=== PATIENT | male | born 1960 | race Caucasian/White ===

== ENCOUNTER 2022-09-01 17:19 | Inpatient (IN) ==
--- NOTE | 2022-09-01 17:53 | Emergency Department Note ---
Impression & Plan Acidosis, lactic ADMIT ED Provider Note HPI: The patient is a 62-year-old gentleman who presents the emergency department with a chief complaint of altered mental status. Patient tells me that earlier today around 1:30 PM he had an episode where he felt somewhat dizzy, states that he was sitting on a tractor doing some work outside [place]. Patient states that he felt dizzy and somewhat nauseous at the time, he denies any headache, denies any chest pain or shortness of breath. Patient states he was able to call the [employer] yard and then his was able to come pick him up in the car. By the time he arrived back to the [facility] office, it was about 2 hours after the episode started. Patient states in total the episode lasted 10 minutes. Patient is able to give me a fairly lucid history however his at the bedside states the patient has been confused ever since this happened. She states that he did not know what day it was, he is unable to accurately state his age. Patient tells me on arrival that he believes he is 51 years old but he is actually 62 years old, additionally patient believes it is the year 2021 instead of 2022. He is otherwise alert and without any focal deficits on arrival. Patient is ROS: - Per HPI *Outpatient medications and allergy history reviewed. *Pertinent external medical records reviewed. PE: General: Alert HEENT: Normocephalic, trachea midline Eyes: Extraocular eye movement is intact, no scleral erythema Pulmonary: Clear to auscultation bilaterally, no wheezing Cardio: Regular rate and rhythm GI: Abdomen is soft to palpation : No suprapubic tenderness MSK: No evidence of trauma or malformation of the extremities, no edema Skin: No evidence of rash Neuro: Alert, no focal deficits, equal bilateral plant protection supervisor strength, symmetrical facial movements are appreciated, patient ambulates all extremities spontaneously without issue Psychiatric: Cooperative electrical engineer: (As interpreted by myself): - An order was placed for continuous cardiac monitoring - Patient was noted to be in sinus rhythm with a rate of 70 EKG: (As interpreted by myself): Rate: 74 Rhythm: Normal sinus rhythm Intervals: Within normal limits ST changes: No ST elevation Time: 1733 Interventions provided in ED: -IV fluid bolus Differential Diagnosis: Acute ischemic stroke, dehydration/heatstroke, sepsis, intracranial bleed to include subarachnoid hemorrhage, subdural hemorrhage, epidural hematoma, delirium, amongst other potential pathologies. Medical Decision Making: Patient presented to the emergency department after an episode of altered mentation, confusion, states he also had presyncope. Patient is a fair historian on arrival but does exhibit some confusion, does not know his own age, is not sure what the year is. Patient's at the bedside states these are acute changes for him. He presents around 4 hours after his symptoms allegedly occurred although timeline is not completely clear. Patient does not have any focal deficits on arrival Shortly after the patient arrived IV was established, lab work obtained, patient was placed on operations specialist. Lab work does not show any leukocytosis, hemoglobin is within normal limits, platelet count is within normal limits, venous blood gas shows a normal pH, CMP does not show any critical electrolyte abnormalities, procalcitonin is low, low suspicion for infectious etiology at this time. CT imaging of the head was obtained and does not show any evidence of an acute intracranial process. Chest x-ray does not show any evidence of pneumonia. Given the patient's confusion and presyncopal event today I feel that he would benefit from admission, likely also to obtain MRI imaging to rule out acute ischemic pathology potentially as a source of his symptoms earlier today. If his symptoms are ischemic in nature I would not consider him a candidate for aggressive therapy such as tPA given unclear timeline as he is unable to completely recollect the timeline of events and arrived around 4 hours after he believes they might of occurred. In addition his physical exam aside from some confusion is reassuring. I think some of his symptoms may be secondary to dehydration with his lactic acidosis having been out in the hot sun today. Following IV fluid resuscitation and on my reassessment the patient states he is feeling improved. His states that his mentation seems to be clearing. Case was discussed with the on-call hospitalist, Dr. Peterson who accepted the patient to the inpatient service for further management. Patient and his at the bedside are in agreement to the above plan Consultants: Dr. Peterson, hospitalist Disposition discussion held by myself with: Patient and at bedside Diagnosis: 1. Encephalopathy, acute, nonspecific 2. Presyncopal event 3. Lactic acidosis, acute Disposition: Admission Juwan Reagan DO Emergency Medicine Past Med/Surg History Medical History (Updated 09/01/22 @ 21:56 by Juwan Reagan DO) Agoraphobia with panic disorder Asthma CAD (coronary artery disease) Disease of pituitary gland remote h/o following with endo for this DM II (diabetes mellitus, type II), controlled HTN (hypertension) MDD (major depressive disorder) Obstructive sleep apnea PTSD (post-traumatic stress disorder) Surgical History (Updated 09/01/22 @ 20:36 by Moon Galvin PA-C) H/O shoulder surgery Family History (Updated 09/01/22 @ 20:36 by Moon Galvin PA-C) Other Cancer Diabetes Social History (Updated 09/01/22 @ 20:37 by Moon Galvin PA-C) Smoking Status: Former smoker Tobacco Type: Cigarettes Hx Alcohol Use: Yes Alcohol Intake Frequency: 2-4 x/Month Hx Substance Use: No Feels Safe at Home: Yes Allergies Allergies Allergy/AdvReac Type Severity Reaction Status Date / Time house dust Allergy Intermediate SNEEZING, Verified 09/01/22 18:29 CONGESTION, CAN TRIGGER ASTHMA mold Allergy Intermediate SNEEZING, Verified 09/01/22 18:29 CONGESTION, CAN TRIGGER ASTHMA pollen extracts Allergy Intermediate SNEEZING, Verified 09/01/22 18:29 CONGESTION, CAN TRIGGER ASTHMA amoxicillin [From Augmentin] AdvReac Intermediate Diarrhea Verified 09/01/22 18:29 clavulanic acid AdvReac Intermediate Diarrhea Verified 09/01/22 18:29 [From Augmentin] Home Meds Home Medications Medication Instructions Recorded Confirmed albuterol sulfate 2.5 mg/3 mL 2.5 mg inhalation Q4H PRN 09/01/22 09/01/22 (0.083 %) solution for nebulization Shortness Of Breath albuterol sulfate 90 mcg/actuation 2 puff inhalation .Q4-6H PRN 09/01/22 09/01/22 aerosol inhaler (ProAir HFA) Shortness Of Breath aspirin 81 mg tablet,delayed 81 mg PO DAILY 09/01/22 09/01/22 release azelastine 0.05 % eye drops 1 drp OPB Q12H 09/01/22 09/01/22 cholecalciferol (vitamin D3) 25 25 mcg PO DAILY 09/01/22 09/01/22 mcg (1,000 unit) capsule (Vitamin D3) dapagliflozin 10 mg tablet 10 mg PO DAILY 09/01/22 09/01/22 (Farxiga) dulaglutide 3 mg/0.5 mL 3 mg subcut WK 09/01/22 09/01/22 subcutaneous pen injector (Trulicity) duloxetine 60 mg capsule,delayed 60 mg PO DAILY 09/01/22 09/01/22 release fexofenadine 180 mg tablet 180 mg PO DAILY PRN Congestion 09/01/22 09/01/22 fluticasone 250 mcg-salmeterol 50 2 inh inhalation DAILY 09/01/22 09/01/22 mcg/dose blistr powdr for inhalation (Advair Diskus) gabapentin 400 mg capsule 400 mg PO TID 09/01/22 09/01/22 glipizide 5 mg tablet, extended 5 mg PO QAM 09/01/22 09/01/22 release 24 hr glucosamine sulf dipot 1 cap PO DAILY 09/01/22 09/01/22 chlr,msm,chond 550 mg-C 30 mg-donnell 1 mg capsule (Glucosamine Chondroitin) lansoprazole 30 mg capsule,delayed 30 mg PO BID 09/01/22 09/01/22 release lisinopril 20 1 tab PO DAILY 09/01/22 09/01/22 mg-hydrochlorothiazide 25 mg tablet metformin 500 mg tablet 1,000 mg PO BID 09/01/22 09/01/22 montelukast 10 mg tablet 10 mg PO DAILY 09/01/22 09/01/22 (Singulair) lduepvnubzwu-gcrvgrmw-coybqe tablet 1 tab PO DAILY 09/01/22 09/01/22 ropinirole 0.25 mg tablet 0.5 mg PO QPM 09/01/22 09/01/22 rosuvastatin 10 mg tablet 10 mg PO HS 09/01/22 09/01/22 sodium chloride 0.65 % nasal spray 1 spray intranasal DIRECTED PRN 09/01/22 09/01/22 aerosol (Saline Nasal) Nasal Congestion Results & Data (ED) Vital Signs Vital Signs - 24 hr 09/01/22 17:40 09/01/22 17:47 09/01/22 17:47 Temperature 37.7 C H Temperature Source Oral Pulse Rate - Lying Pulse Rate - Sitting Pulse Rate - Standing Pulse Rate 72 73 Pulse Rate [Finger] 73 Respiratory Rate 20 Respiratory Effort / Characteristics Non-Labored Respiratory Depth Normal Blood Pressure - Lying Blood Pressure - Sitting Blood Pressure- Standing Blood Pressure 144/87 H Blood Pressure [Right Arm] Blood Pressure Mean 106 Blood Pressure Mean [Right Arm] Pulse Oximetry 99 Oxygen Delivery Method Room Air Sepsis Recent Fever Within 48 Hours No Sepsis New/Unexplained Change in Mental Status Yes Sepsis Action Taken by Nursing No Action Required 09/01/22 17:57 09/01/22 19:39 09/01/22 20:36 Temperature Temperature Source Pulse Rate - Lying Pulse Rate - Sitting Pulse Rate - Standing Pulse Rate Pulse Rate [Finger] 70 77 Respiratory Rate 18 16 Respiratory Effort / Characteristics Non-Labored Spontaneous Respiratory Depth Normal Blood Pressure - Lying Blood Pressure - Sitting Blood Pressure- Standing Blood Pressure Blood Pressure [Right Arm] 113/70 107/65 Blood Pressure Mean Blood Pressure Mean [Right Arm] 84 79 Pulse Oximetry 99 99 94 Oxygen Delivery Method Room Air Room Air Sepsis Recent Fever Within 48 Hours Sepsis New/Unexplained Change in Mental Status Sepsis Action Taken by Nursing 09/01/22 21:05 09/01/22 21:34 09/01/22 21:37 Temperature Temperature Source Pulse Rate - Lying 69 Pulse Rate - Sitting 66 Pulse Rate - Standing 78 Pulse Rate 69 Pulse Rate [Finger] 80 Respiratory Rate Respiratory Effort / Characteristics Respiratory Depth Blood Pressure - Lying 110/73 Blood Pressure - Sitting 112/65 Blood Pressure- Standing 126/75 Blood Pressure Blood Pressure [Right Arm] Blood Pressure Mean Blood Pressure Mean [Right Arm] Pulse Oximetry 98 Oxygen Delivery Method Room Air Sepsis Recent Fever Within 48 Hours Sepsis New/Unexplained Change in Mental Status Sepsis Action Taken by Nursing Laboratory Data 09/01/22 18:15 09/01/22 18:15 Lab Results 09/01/22 09/01/22 09/01/22 Range/Units 17:32 18:15 18:15 WBC 9.28 (4.8-10.8) K/ul RBC 4.04 L (4.70-6.10) M/uL Hgb 14.1 (14.0-18.0) g/dl Hct 40.8 L (42.0-52.0) % MCV 101.0 H (80.0-100.0) fL MCH 34.9 H (25.0-34.0) pg MCHC 34.6 (32.0-36.0) g/dL RDW Std Deviation 46.5 H (36.4-46.3) fL RDW Coeff of Tyler 12.5 (11.5-14.5) % Plt Count 221 (130-400) K/uL MPV 11.1 (9.4-12.4) fL Immature Gran % (Auto) 0.2 % Neut % (Auto) 63.3 % Lymph % (Auto) 26.1 % Butts % (Auto) 8.9 % Eos % (Auto) 1.2 % Baso % (Auto) 0.3 % Neut # (Auto) 5.87 (1.40-6.50) K/uL Lymph # (Auto) 2.42 (1.2-3.4) K/uL Butts # (Auto) 0.83 H (0.11-0.59) K/uL Eos # (Auto) 0.11 (0-0.50) K/uL Baso # (Auto) 0.03 (0-0.2) K/uL Immature Gran # (Auto) 0.02 (0.01-0.20) K/uL PT 11.4 (9.0-12.0) Seconds INR 1.1 (0.9-1.1) VBG pH (7.36-7.41) VBG pCO2 (38-50) mmHg VBG pO2 mmHg VBG HCO3 mmol/L VBG O2 Saturation % VBG Base Excess mEq/L Sodium (136-145) mmol/L Potassium (3.5-5.1) mmol/L Chloride (98-107) mmol/L Carbon Dioxide (21-32) mmol/L Anion Gap (3-11) BUN (6-23) mg/dl Creatinine (0.6-1.4) mg/dl Est Cr Clr Drug Dosing ml/min Est GFR ( Amer) ml/min Est GFR (Non-Af Amer) ml/min BUN/Creatinine Ratio (10-20) Glucose (70-99(Fasting)) mg/dl POC Glucose 109 H (70-99) mg/dl Lactate (0.4-2.0) mmol/L Calcium (8.6-10.3) mg/dl Magnesium (1.7-2.4) mg/dl Total Bilirubin (0.2-1.0) mg/dl Direct Bilirubin (0-0.2) mg/dl AST (13-39) U/L ALT (7-52) U/L Alkaline Phosphatase (34-104) U/L Ammonia (18-72) umol/L Total Creatine Kinase (30-223) U/L Troponin I High Sens (0-20) pg/ml Total Protein (6.0-8.3) gm/dl Albumin (3.4-5.0) gm/dl Procalcitonin (0-0.5) ng/ml Urine Color Urine Appearance (Clear) Urine pH (4.5-7.5) Ur Specific Wittman (1.000-1.030) Urine Protein (Negative) Urine Glucose (UA) (Negative) Urine Ketones (Negative) Urine Blood (Negative) Urine Nitrite (Negative) Urine Bilirubin (Negative) Urine Urobilinogen (Negative) Ur Leukocyte Esterase (Negative) Lyme Disease IgG Ab (Negative) Lyme Disease IgM Ab (Negative) SARS-CoV-2 (PCR) (Negative) Influenza Type A (PCR) (Neg) Influenza Type B (PCR) (Neg) RSV (RT-PCR) (Neg) 09/01/22 09/01/22 09/01/22 Range/Units 18:15 18:15 18:15 WBC (4.8-10.8) K/ul RBC (4.70-6.10) M/uL Hgb (14.0-18.0) g/dl Hct (42.0-52.0) % MCV (80.0-100.0) fL MCH (25.0-34.0) pg MCHC (32.0-36.0) g/dL RDW Std Deviation (36.4-46.3) fL RDW Coeff of Tyler (11.5-14.5) % Plt Count (130-400) K/uL MPV (9.4-12.4) fL Immature Gran % (Auto) % Neut % (Auto) % Lymph % (Auto) % Butts % (Auto) % Eos % (Auto) % Baso % (Auto) % Neut # (Auto) (1.40-6.50) K/uL Lymph # (Auto) (1.2-3.4) K/uL Butts # (Auto) (0.11-0.59) K/uL Eos # (Auto) (0-0.50) K/uL Baso # (Auto) (0-0.2) K/uL Immature Gran # (Auto) (0.01-0.20) K/uL PT (9.0-12.0) Seconds INR (0.9-1.1) VBG pH (7.36-7.41) VBG pCO2 (38-50) mmHg VBG pO2 mmHg VBG HCO3 mmol/L VBG O2 Saturation % VBG Base Excess mEq/L Sodium 138 (136-145) mmol/L Potassium 4.0 (3.5-5.1) mmol/L Chloride 104 (98-107) mmol/L Carbon Dioxide 23 (21-32) mmol/L Anion Gap 11 (3-11) BUN 28 H (6-23) mg/dl Creatinine 1.25 (0.6-1.4) mg/dl Est Cr Clr Drug Dosing 69.3 ml/min Est GFR ( Amer) 70.6 ml/min Est GFR (Non-Af Amer) 60.9 ml/min BUN/Creatinine Ratio 22.4 H (10-20) Glucose 91 (70-99(Fasting)) mg/dl POC Glucose (70-99) mg/dl Lactate 3.7 H* (0.4-2.0) mmol/L Calcium 9.0 (8.6-10.3) mg/dl Magnesium 1.2 L (1.7-2.4) mg/dl Total Bilirubin 1.3 H (0.2-1.0) mg/dl Direct Bilirubin 0.2 (0-0.2) mg/dl AST 54 H (13-39) U/L ALT 65 H (7-52) U/L Alkaline Phosphatase 59 (34-104) U/L Ammonia (18-72) umol/L Total Creatine Kinase (30-223) U/L Troponin I High Sens 10.8 (0-20) pg/ml Total Protein 6.9 (6.0-8.3) gm/dl Albumin 3.9 (3.4-5.0) gm/dl Procalcitonin < 0.05 (0-0.5) ng/ml Urine Color Urine Appearance (Clear) Urine pH (4.5-7.5) Ur Specific Wittman (1.000-1.030) Urine Protein (Negative) Urine Glucose (UA) (Negative) Urine Ketones (Negative) Urine Blood (Negative) Urine Nitrite (Negative) Urine Bilirubin (Negative) Urine Urobilinogen (Negative) Ur Leukocyte Esterase (Negative) Lyme Disease IgG Ab (Negative) Lyme Disease IgM Ab (Negative) SARS-CoV-2 (PCR) (Negative) Influenza Type A (PCR) (Neg) Influenza Type B (PCR) (Neg) RSV (RT-PCR) (Neg) 09/01/22 09/01/22 09/01/22 Range/Units 18:15 18:15 18:15 WBC (4.8-10.8) K/ul RBC (4.70-6.10) M/uL Hgb (14.0-18.0) g/dl Hct (42.0-52.0) % MCV (80.0-100.0) fL MCH (25.0-34.0) pg MCHC (32.0-36.0) g/dL RDW Std Deviation (36.4-46.3) fL RDW Coeff of Tyler (11.5-14.5) % Plt Count (130-400) K/uL MPV (9.4-12.4) fL Immature Gran % (Auto) % Neut % (Auto) % Lymph % (Auto) % Butts % (Auto) % Eos % (Auto) % Baso % (Auto) % Neut # (Auto) (1.40-6.50) K/uL Lymph # (Auto) (1.2-3.4) K/uL Butts # (Auto) (0.11-0.59) K/uL Eos # (Auto) (0-0.50) K/uL Baso # (Auto) (0-0.2) K/uL Immature Gran # (Auto) (0.01-0.20) K/uL PT (9.0-12.0) Seconds INR (0.9-1.1) VBG pH (7.36-7.41) VBG pCO2 (38-50) mmHg VBG pO2 mmHg VBG HCO3 mmol/L VBG O2 Saturation % VBG Base Excess mEq/L Sodium (136-145) mmol/L Potassium (3.5-5.1) mmol/L Chloride (98-107) mmol/L Carbon Dioxide (21-32) mmol/L Anion Gap (3-11) BUN (6-23) mg/dl Creatinine (0.6-1.4) mg/dl Est Cr Clr Drug Dosing ml/min Est GFR ( Amer) ml/min Est GFR (Non-Af Amer) ml/min BUN/Creatinine Ratio (10-20) Glucose (70-99(Fasting)) mg/dl POC Glucose (70-99) mg/dl Lactate (0.4-2.0) mmol/L Calcium (8.6-10.3) mg/dl Magnesium (1.7-2.4) mg/dl Total Bilirubin (0.2-1.0) mg/dl Direct Bilirubin (0-0.2) mg/dl AST (13-39) U/L ALT (7-52) U/L Alkaline Phosphatase (34-104) U/L Ammonia 45.0 (18-72) umol/L Total Creatine Kinase (30-223) U/L Troponin I High Sens (0-20) pg/ml Total Protein (6.0-8.3) gm/dl Albumin (3.4-5.0) gm/dl Procalcitonin (0-0.5) ng/ml Urine Color Yellow Urine Appearance Clear (Clear) Urine pH 8.0 H (4.5-7.5) Ur Specific Wittman 1.016 (1.000-1.030) Urine Protein Negative (Negative) Urine Glucose (UA) 3+ H (Negative) Urine Ketones 1+ H (Negative) Urine Blood Negative (Negative) Urine Nitrite Negative (Negative) Urine Bilirubin Negative (Negative) Urine Urobilinogen Negative (Negative) Ur Leukocyte Esterase Negative (Negative) Lyme Disease IgG Ab Negative (Negative) Lyme Disease IgM Ab Negative (Negative) SARS-CoV-2 (PCR) (Negative) Influenza Type A (PCR) (Neg) Influenza Type B (PCR) (Neg) RSV (RT-PCR) (Neg) 09/01/22 09/01/22 09/01/22 Range/Units 18:36 18:37 19:55 WBC (4.8-10.8) K/ul RBC (4.70-6.10) M/uL Hgb (14.0-18.0) g/dl Hct (42.0-52.0) % MCV (80.0-100.0) fL MCH (25.0-34.0) pg MCHC (32.0-36.0) g/dL RDW Std Deviation (36.4-46.3) fL RDW Coeff of Tyler (11.5-14.5) % Plt Count (130-400) K/uL MPV (9.4-12.4) fL Immature Gran % (Auto) % Neut % (Auto) % Lymph % (Auto) % Butts % (Auto) % Eos % (Auto) % Baso % (Auto) % Neut # (Auto) (1.40-6.50) K/uL Lymph # (Auto) (1.2-3.4) K/uL Butts # (Auto) (0.11-0.59) K/uL Eos # (Auto) (0-0.50) K/uL Baso # (Auto) (0-0.2) K/uL Immature Gran # (Auto) (0.01-0.20) K/uL PT (9.0-12.0) Seconds INR (0.9-1.1) VBG pH 7.40 (7.36-7.41) VBG pCO2 37 L (38-50) mmHg VBG pO2 52 mmHg VBG HCO3 23 mmol/L VBG O2 Saturation 84.3 % VBG Base Excess -1.5 mEq/L Sodium (136-145) mmol/L Potassium (3.5-5.1) mmol/L Chloride (98-107) mmol/L Carbon Dioxide (21-32) mmol/L Anion Gap (3-11) BUN (6-23) mg/dl Creatinine (0.6-1.4) mg/dl Est Cr Clr Drug Dosing ml/min Est GFR ( Amer) ml/min Est GFR (Non-Af Amer) ml/min BUN/Creatinine Ratio (10-20) Glucose (70-99(Fasting)) mg/dl POC Glucose (70-99) mg/dl Lactate 1.6 (0.4-2.0) mmol/L Calcium (8.6-10.3) mg/dl Magnesium (1.7-2.4) mg/dl Total Bilirubin (0.2-1.0) mg/dl Direct Bilirubin (0-0.2) mg/dl AST (13-39) U/L ALT (7-52) U/L Alkaline Phosphatase (34-104) U/L Ammonia (18-72) umol/L Total Creatine Kinase 742 H (30-223) U/L Troponin I High Sens (0-20) pg/ml Total Protein (6.0-8.3) gm/dl Albumin (3.4-5.0) gm/dl Procalcitonin (0-0.5) ng/ml Urine Color Urine Appearance (Clear) Urine pH (4.5-7.5) Ur Specific Wittman (1.000-1.030) Urine Protein (Negative) Urine Glucose (UA) (Negative) Urine Ketones (Negative) Urine Blood (Negative) Urine Nitrite (Negative) Urine Bilirubin (Negative) Urine Urobilinogen (Negative) Ur Leukocyte Esterase (Negative) Lyme Disease IgG Ab (Negative) Lyme Disease IgM Ab (Negative) SARS-CoV-2 (PCR) (Negative) Influenza Type A (PCR) (Neg) Influenza Type B (PCR) (Neg) RSV (RT-PCR) (Neg) 09/01/22 Range/Units 20:00 WBC (4.8-10.8) K/ul RBC (4.70-6.10) M/uL Hgb (14.0-18.0) g/dl Hct (42.0-52.0) % MCV (80.0-100.0) fL MCH (25.0-34.0) pg MCHC (32.0-36.0) g/dL RDW Std Deviation (36.4-46.3) fL RDW Coeff of Tyler (11.5-14.5) % Plt Count (130-400) K/uL MPV (9.4-12.4) fL Immature Gran % (Auto) % Neut % (Auto) % Lymph % (Auto) % Butts % (Auto) % Eos % (Auto) % Baso % (Auto) % Neut # (Auto) (1.40-6.50) K/uL Lymph # (Auto) (1.2-3.4) K/uL Butts # (Auto) (0.11-0.59) K/uL Eos # (Auto) (0-0.50) K/uL Baso # (Auto) (0-0.2) K/uL Immature Gran # (Auto) (0.01-0.20) K/uL PT (9.0-12.0) Seconds INR (0.9-1.1) VBG pH (7.36-7.41) VBG pCO2 (38-50) mmHg VBG pO2 mmHg VBG HCO3 mmol/L VBG O2 Saturation % VBG Base Excess mEq/L Sodium (136-145) mmol/L Potassium (3.5-5.1) mmol/L Chloride (98-107) mmol/L Carbon Dioxide (21-32) mmol/L Anion Gap (3-11) BUN (6-23) mg/dl Creatinine (0.6-1.4) mg/dl Est Cr Clr Drug Dosing ml/min Est GFR ( Amer) ml/min Est GFR (Non-Af Amer) ml/min BUN/Creatinine Ratio (10-20) Glucose (70-99(Fasting)) mg/dl POC Glucose (70-99) mg/dl Lactate (0.4-2.0) mmol/L Calcium (8.6-10.3) mg/dl Magnesium (1.7-2.4) mg/dl Total Bilirubin (0.2-1.0) mg/dl Direct Bilirubin (0-0.2) mg/dl AST (13-39) U/L ALT (7-52) U/L Alkaline Phosphatase (34-104) U/L Ammonia (18-72) umol/L Total Creatine Kinase (30-223) U/L Troponin I High Sens (0-20) pg/ml Total Protein (6.0-8.3) gm/dl Albumin (3.4-5.0) gm/dl Procalcitonin (0-0.5) ng/ml Urine Color Urine Appearance (Clear) Urine pH (4.5-7.5) Ur Specific Wittman (1.000-1.030) Urine Protein (Negative) Urine Glucose (UA) (Negative) Urine Ketones (Negative) Urine Blood (Negative) Urine Nitrite (Negative) Urine Bilirubin (Negative) Urine Urobilinogen (Negative) Ur Leukocyte Esterase (Negative) Lyme Disease IgG Ab (Negative) Lyme Disease IgM Ab (Negative) SARS-CoV-2 (PCR) NEGATIVE (Negative) Influenza Type A (PCR) Negative (Neg) Influenza Type B (PCR) Negative (Neg) RSV (RT-PCR) Negative (Neg) Administered Medications Magnesium Sulfate/Dextrose (Magnesium Sulfate / D5w) 1 gm in 100 mls @ 50 mls/hr IV Q2H JOHANA Stop: 09/02/22 02:44 Last Admin: 09/01/22 20:46 Dose: 50 mls/hr Documented By: Sodium Chloride (Nss 1000ml) 1,000 mls @ 100 mls/hr IV .Q10H ONE Stop: 09/02/22 06:37 Last Admin: 09/01/22 20:46 Dose: 100 mls/hr Documented By: Discontinued Medications Acetaminophen (Acetaminophen 500 Mg Tab) 500 mg PO NOW STA Stop: 09/01/22 20:27 Last Admin: 09/01/22 20:45 Dose: 500 mg Documented By: Sodium Chloride (Nss 1000ml) 1,000 mls @ 999 mls/hr IV .Q1H1M JOHANA Stop: 09/01/22 19:00 Last Infusion: 09/01/22 19:34 Dose: 0 mls/hr Documented By: Admin: 09/01/22 18:28 Dose: 999 mls/hr Documented By: Sodium Chloride (Nss 1000ml) 1,000 mls @ 999 mls/hr IV .Q1H1M ONE Stop: 09/01/22 20:52 Last Infusion: 09/01/22 20:46 Dose: 0 mls/hr Documented By: Admin: 09/01/22 19:55 Dose: 999 mls/hr Documented By: Imaging Data Radiologist's Impression: Chest X-Ray 09/01/22 17:49 XR chest 1V portable HISTORY: 62 years-old Male Sepsis acute sepsis COMPARISON: None TECHNIQUE: AP view of the chest FINDINGS: Cardiac silhouette is mildly enlarged. No pneumothorax, pleural effusion, airspace consolidation or pulmonary edema. Degenerative changes of the shoulders and spine. IMPRESSION: No acute process. ACT 112: Negative or not required by law. The above report was generated using voice recognition software. It may contain grammatical, syntax or spelling errors. Electronically signed by: Murphy Mcdermott M.D. 09/01/2022 6:[address] 09/01/22 17:50 CT head/brain wo con CLINICAL HISTORY: 62 years-old Male with AMS. Acutely altered mental status TECHNIQUE: Multiple axial CT images of the head were obtained without contrast. A dose lowering technique was utilized adhering to the principles of ALARA. CT DOSE: 537.48 mGy.cm COMPARISON: None. FINDINGS: No acute intracranial hemorrhage, midline shift, intracranial mass, hydrocephalus, territorial ischemia or abnormal extra-axial collection. Mild involutional changes. Cerebral vascular calcifications. The calvarium is intact. The paranasal sinuses, mastoid air cells, and middle ear cavities are clear. IMPRESSION: No acute intracranial abnormality. ACT 112: Negative or not required by law. The above report was generated using voice recognition software. It may contain grammatical, syntax or spelling errors. Electronically signed by: Murphy Mcdermott M.D. 09/01/2022 7:43 PM Discharge Plan Visit Data Chief Complaint: Altered Mental Status ED Provider: Juwan Reagan Discharge Problem: Acidosis, lactic Forms Stand Alone Forms: [facility] Prescriptions Prescriptions: No Action metformin 500 mg tablet 1,000 mg PO BID fluticasone propion-salmeterol [Advair Diskus] 250-50 mcg/dose Blister With Device 2 inh INHALATION DAILY azelastine 0.05 % drops 1 drp OPB Q12H albuterol sulfate 2.5 mg /3 mL (0.083 %) Solution For Nebulization 2.5 mg INHALATION Q4H PRN (Reason: Shortness Of Breath) gabapentin 400 mg capsule 400 mg PO TID glipizide 5 mg tablet extended release 24hr 5 mg PO QAM fexofenadine [Alessia] 180 mg Tablet 180 mg PO DAILY PRN (Reason: Congestion) aspirin 81 mg Tablet,Delayed Release (Dr/Ec) 81 mg PO DAILY ropinirole 0.25 mg tablet 0.5 mg PO QPM Rx Instructions: TAKE 1 HR PRIOR TO HS. lansoprazole 30 mg capsule,delayed release(DR/EC) 30 mg PO BID lisinopril-hydrochlorothiazide 20-25 mg tablet 1 tab PO DAILY montelukast [Singulair] 10 mg Tablet 10 mg PO DAILY albuterol sulfate [ProAir HFA] 90 mcg/actuation Hfa Aerosol Inhaler 2 puff INHALATION .Q4-6H PRN (Reason: Shortness Of Breath) cholecalciferol (vitamin D3) [Vitamin D3] 25 mcg (1,000 unit) Capsule 25 mcg PO DAILY Centrum Silver Tablet 1 tab PO DAILY Saline Nasal 0.65 % Aerosol,[place] 1 spray INTRANASAL DIRECTED PRN (Reason: Nasal Congestion) rosuvastatin 10 mg tablet 10 mg PO HS duloxetine 60 mg Capsule,Delayed Release(Dr/Ec) 60 mg PO DAILY Farxiga 10 mg tablet 10 mg PO DAILY Glucosamine Chondroitin 550-30-1 mg Capsule 1 cap PO DAILY Trulicity 3 mg/0.5 mL pen injector 3 mg SUBCUT WK Referrals Referrals: PCP,NO [Physician] -
[2022-09-01] MEDS ORDERED: SODIUM CHLORIDE 0.9% 1000ML 1,000 ML IV SCH (18:00)
--- NOTE | 2022-09-01 18:09 | XRay Report ---
XR chest 1V portable HISTORY: 62 years-old Male Sepsis acute sepsis COMPARISON: None TECHNIQUE: AP view of the chest FINDINGS: Cardiac silhouette is mildly enlarged. No pneumothorax, pleural effusion, airspace consolidation or p ulmonary edema. Degenerative changes of the shoulders and spine. IMPRESSION: No acute process. ACT 112: Negative or not required by law. The above report was generated using voice recognition software. It may contain grammatical, syntax o r spelling errors. Electronically signed by: Murphy Mcdermott M.D. 09/01/2022 6:08 PM
[2022-09-01 18:30] LABS: Appearance Urine Clear (Clear); Bilirubin Urine Negative (Negative); Blood Urine Negative (Negative); Color Urine Yellow; Glucose Urine UA 3+ (Negative); Ketones Urine 1+ (Negative); Leukocyte Esterase Urine Negative (Negative); Nitrite Urine Negative (Negative); Protein Urine Negative (Negative); Specific Gravity Urine 1.016 (1.000-1.030); Urobilinogen Urine Negative (Negative)
[2022-09-01 18:42] LABS: Base Excess VBG -1.5 mEq/L; HCO3 VBG 23 mmol/L; Oxygen Saturation VBG 84.3 %; PCO2 VBG 37 mmHg (38-50); PO2 VBG 52 mmHg
[2022-09-01 18:43] LABS: Basophils # (auto) 0.03 K/uL (0-0.2); Basophils % (auto) 0.3 %; Eosinophils # (auto) 0.11 K/uL (0-0.50); Eosinophils % (auto) 1.2 %; Hematocrit (blood only) 40.8 % (42.0-52.0); Hemoglobin 14.1 g/dl (14.0-18.0); Immature Granulocytes # (auto) 0.02 K/uL (0.01-0.20); Immature Granulocytes % (auto) 0.2 %; Lymphocytes # (auto) 2.42 K/uL (1.2-3.4); Lymphocytes % (auto) 26.1 %; Mean Corpuscular Hemoglobin 34.9 pg (25.0-34.0); Mean Corpuscular Hgb Conc 34.6 g/dL (32.0-36.0); Mean Platelet Volume 11.1 fL (9.4-12.4); Monocytes # (auto) 0.83 K/uL (0.11-0.59); Monocytes % (auto) 8.9 %; Neutrophils # (auto) 5.87 K/uL (1.40-6.50); Neutrophils % (auto) 63.3 %; Platelet Count 221 K/uL (130-400); RDW Coefficient of Variation 12.5 % (11.5-14.5); RDW Standard Deviation 46.5 fL (36.4-46.3); Red Blood Count 4.04 M/uL (4.70-6.10); White Blood Count 9.28 K/ul (4.8-10.8)
[2022-09-01 18:56] LABS: Albumin Level 3.9 gm/dl (3.4-5.0); BUN Creatinine Ratio 22.4 (10-20); Bilirubin Direct 0.2 mg/dl (0-0.2); Bilirubin,Total 1.3 mg/dl (0.2-1.0); Creatinine Clr Calc Pharmacy 69.3 ml/min; Est GFR (African American) 70.6 ml/min; Est GFR (Non-African American) 60.9 ml/min; Magnesium 1.2 mg/dl (1.7-2.4); Total Protein 6.9 gm/dl (6.0-8.3)
[2022-09-01 19:02] LABS: Troponin I High Sensitivity 10.8 pg/ml (0-20)
[2022-09-01 19:06] LABS: INR 1.1 (0.9-1.1); Prothrombin Time 11.4 Seconds (9.0-12.0)
--- NOTE | 2022-09-01 19:45 | CT Scan Report ---
CT head/brain wo con CLINICAL HISTORY: 62 years-old Male with AMS. Acutely altered mental status TECHNIQUE: Multiple axial CT images of the head were obtained without contrast. A dose lowering tech nique was utilized adhering to the principles of ALARA. CT DOSE: 537.48 mGy.cm COMPARISON: None. FINDINGS: No acute intracranial hemorrhage, midline shift, intracranial mass, hydrocephalus, territorial ischem ia or abnormal extra-axial collection. Mild involutional changes. Cerebral vascular calcifications. The calvarium is intact. The paranasal sinuses, mastoid air cells, and middle ear cavities are clear . IMPRESSION: No acute intracranial abnormality. ACT 112: Negative or not required by law. The above report was generated using voice recognition software. It may contain grammatical, syntax o r spelling errors. Electronically signed by: Murphy Mcdermott M.D. 09/01/2022 7:43 PM
[2022-09-01] MEDS ORDERED: SODIUM CHLORIDE 0.9% 1000ML 1,000 ML IV ONE ×2 (19:52→20:38)
[2022-09-01] MEDS ORDERED: ACETAMINOPHEN 500 MG TAB PO STA (20:26)
--- NOTE | 2022-09-01 20:30 | History & Physical Report ---
Date of Service September 01, 2022 Assessment & Plan (1) AMS (altered mental status): (2) Pre-syncope: (3) CAD (coronary artery disease): (4) HTN (hypertension): (5) Obstructive sleep apnea: (6) DM II (diabetes mellitus, type II), controlled: (7) MDD (major depressive disorder): (8) PTSD (post-traumatic stress disorder): (9) Lightheadedness: Plan This is a 62-year-old male with PMH of type 2 diabetes, asthma, CAD, hypertension, depression, PTSD PANFILO on CPAP and other medical problems listed below who presents with altered mental status. Please see Dr. Stephens's assessment and plan for further details. History of Present Illness Chief Complaint: AMS Primary Care Provider: Philippe Siddiqui This is a 62-year-old male with PMH of type 2 diabetes, asthma, CAD, hypertension, depression, PTSD PANFILO on CPAP and other medical problems listed below who presents with altered mental status. 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 Got on his tractor around 1330 and began to feel lightheaded and nauseous to the point of thinking that he may pass out. He then endorses developing shaking of his body with associated sweating, followed by a generalized weak feeling, like his legs were weight. Called the office for help and required physical assistance to get off of the tractor. States the episode lasted 10 minutes but when he was picked up by his , she felt that he remained confused up and through the time he was seen by the ED provider. Was not able to accurately name the day or correctly state his age. Did use bug repellant twice earlier today but denies known exposure to other chemicals or pesticides. No rash. Of note, patient states when he got up to use the bathroom at the campground last night, he walked into the restroom and then ended up urinating all over himself, which he did not have any recollection of until he "came to". This is unusual for him as he is normally continent of urine. Denies any falls or trauma. Denies recent alcohol use and when he does drink, it's an occasional beer. States he was remotely worked up for seizure-like activity but nothing specific was found (no records of a workup in [facility]). Has had previous issues feelings of lightheadedness and nausea that he has attributed to vertigo that have resolved on their own, although patient does note that these episodes have become more frequent and lasted for longer over the past few months. Does endorse intermittent palpitations but no chest pain. Has been having pain in bilateral calf muscles over the past few days that he attributes to more exertion in warmer weather. Per PCP note from May, patient endorsed episodes of sweating with associated dizziness then that did not feel similar to his previous vertigo and was treated with cefdinir for a possible sinus infection. Patient states episodes have worsened since then and the one earlier today was the worst yet. Denies history of [place] but did undergo stress echo in September 2020 that was essentially normal. Stress imaging showed a small apical wall segment being hypokinetic at peak exercise. All other segments were hyperkinetic with exercise. Currently patient is comfortable and A&O x4. Denies any fever, chills, lightheadedness, chest pain, shortness of breath, vomiting, abdominal pain, dysuria, diarrhea or constipation. Taking all medications as prescribed. Allergies Allergy/AdvReac Type Severity Reaction Status Date / Time house dust Allergy Intermediate SNEEZING, Verified 09/01/22 18:29 CONGESTION, CAN TRIGGER ASTHMA mold Allergy Intermediate SNEEZING, Verified 09/01/22 18:29 CONGESTION, CAN TRIGGER ASTHMA pollen extracts Allergy Intermediate SNEEZING, Verified 09/01/22 18:29 CONGESTION, CAN TRIGGER ASTHMA amoxicillin [From Augmentin] AdvReac Intermediate Diarrhea Verified 09/01/22 18:29 clavulanic acid AdvReac Intermediate Diarrhea Verified 09/01/22 18:29 [From Augmentin] Home Medications Medication Instructions Recorded Confirmed Type albuterol sulfate 2.5 mg/3 mL 2.5 mg inhalation Q4H PRN 09/01/22 09/01/22 History (0.083 %) solution for nebulization Shortness Of Breath albuterol sulfate 90 mcg/actuation 2 puff inhalation .Q4-6H PRN 09/01/22 09/01/22 History aerosol inhaler (ProAir HFA) Shortness Of Breath aspirin 81 mg tablet,delayed 81 mg PO DAILY 09/01/22 09/01/22 History release azelastine 0.05 % eye drops 1 drp OPB Q12H 09/01/22 09/01/22 History cholecalciferol (vitamin D3) 25 25 mcg PO DAILY 09/01/22 09/01/22 History mcg (1,000 unit) capsule (Vitamin D3) dapagliflozin 10 mg tablet 10 mg PO DAILY 09/01/22 09/01/22 History (Farxiga) dulaglutide 3 mg/0.5 mL 3 mg subcut WK 09/01/22 09/01/22 History subcutaneous pen injector (Trulicity) duloxetine 60 mg capsule,delayed 60 mg PO DAILY 09/01/22 09/01/22 History release fexofenadine 180 mg tablet 180 mg PO DAILY PRN Congestion 09/01/22 09/01/22 History fluticasone 250 mcg-salmeterol 50 2 inh inhalation DAILY 09/01/22 09/01/22 History mcg/dose blistr powdr for inhalation (Advair Diskus) gabapentin 400 mg capsule 400 mg PO TID 09/01/22 09/01/22 History glipizide 5 mg tablet, extended 5 mg PO QAM 09/01/22 09/01/22 History release 24 hr glucosamine sulf dipot 1 cap PO DAILY 09/01/22 09/01/22 History chlr,msm,chond 550 mg-C 30 mg-donnell 1 mg capsule (Glucosamine Chondroitin) lansoprazole 30 mg capsule,delayed 30 mg PO BID 09/01/22 09/01/22 History release lisinopril 20 1 tab PO DAILY 09/01/22 09/01/22 History mg-hydrochlorothiazide 25 mg tablet metformin 500 mg tablet 1,000 mg PO BID 09/01/22 09/01/22 History montelukast 10 mg tablet 10 mg PO DAILY 09/01/22 09/01/22 History (Singulair) nztrykpmobbb-dkpbuseq-ghfnpa tablet 1 tab PO DAILY 09/01/22 09/01/22 History ropinirole 0.25 mg tablet 0.5 mg PO QPM 09/01/22 09/01/22 History rosuvastatin 10 mg tablet 10 mg PO HS 09/01/22 09/01/22 History sodium chloride 0.65 % nasal spray 1 spray intranasal DIRECTED PRN 09/01/22 09/01/22 History aerosol (Saline Nasal) Nasal Congestion Past Med/Surg History Medical History (Updated 09/01/22 @ 21:56 by Juwan Reagan, DO) Agoraphobia with panic disorder Asthma CAD (coronary artery disease) Disease of pituitary gland remote h/o following with endo for this DM II (diabetes mellitus, type II), controlled HTN (hypertension) MDD (major depressive disorder) Obstructive sleep apnea PTSD (post-traumatic stress disorder) Surgical History (Updated 09/01/22 @ 20:36 by Moon Galvin PA-C) H/O shoulder surgery Family History (Updated 09/01/22 @ 20:36 by Moon Galvin PA-C) Other Cancer Diabetes Social History (Updated 09/01/22 @ 20:37 by Moon Galvin PA-C) Smoking Status: Former smoker Tobacco Type: Cigarettes Do You Dip or Chew Tobacco: No; Hx Alcohol Use: Yes Alcohol type: beer Alcohol Intake Frequency: 2-4 x/Month Hx Substance Use: No Preferred Language: [place] Communication Ability: Effective Mold Stamper Required: No Beliefs That Will Affect Care: None Current Living Situation: Spouse Feels Safe at Home: Yes Safety Concerns: Feels Safe At This Time Assistive Devices: CPAP and Hearing Aid - Bilateral Review of Systems Review of Systems: At least ten systems reviewed and negative except as noted in the HPI. Physical Exam Physical Exam: General Appearance: WD/WN, vitals as above, NAD, sitting up in bed, pleasant, conversing easily, tremoring bilateral hands Head: normocephalic, atraumatic Eyes: normal inspection, PERRL, conjunctivae normal, anicteric sclerae ENT: external ear and nose normal, oropharynx normal Neck: normal visual inspection, trachea midline, no thyromegaly Respiratory: normal respiratory effort, lungs clear to auscultation, no wheeze, rales, rhonchi. No accessory muscle use Cardiovascular: regular rate, rhythm, no murmur, normal peripheral pulses, no BLE edema. Vessels: no JVD Chest: normal inspection of chest Abdomen/GI: normal bowel sounds, soft, nontender, no hepatosplenomegaly Extremities/Musculoskeletal: no cyanosis or clubbing, extremities motor strength 5/5 Neurologic: PERRL, EOMI, accommodation nl, no face palsy, no dysarthria, CN's II-XI intact bilaterally and moves all extremities Psychiatric: A+Ox4, euthymic affect Skin: no rashes, normal color, warm/dry Results & Data Results & Data Vital Signs (Past 12 Hours) Vital Signs Temp Pulse Pulse Resp BP BP Pulse Ox 09/01/22 19:39 70 18 113/70 99 09/01/22 17:57 99 09/01/22 17:47 73 09/01/22 17:47 37.7 C H 73 20 144/87 H 99 09/01/22 17:40 72 O2 Del Method 09/01/22 19:39 09/01/22 17:57 Room Air 09/01/22 17:47 09/01/22 17:47 Room Air 09/01/22 17:40 Laboratory Results Short CBC 09/01/22 Range/Units 18:15 WBC 9.28 (4.8-10.8) K/ul Hgb 14.1 (14.0-18.0) g/dl Hct 40.8 L (42.0-52.0) % Plt Count 221 (130-400) K/uL BMP 09/01/22 18:15 Sodium 138 Potassium 4.0 Chloride 104 Carbon Dioxide 23 BUN 28 H Creatinine 1.25 Glucose 91 Calcium 9.0 Cardiac Enzymes 09/01/22 Range/Units 18:37 Total Creatine Kinase 742 H (30-223) U/L Liver Function 09/01/22 Range/Units 18:15 Total Bilirubin 1.3 H (0.2-1.0) mg/dl Direct Bilirubin 0.2 (0-0.2) mg/dl AST 54 H (13-39) U/L ALT 65 H (7-52) U/L Alkaline Phosphatase 59 (34-104) U/L Albumin 3.9 (3.4-5.0) gm/dl Urine 09/01/22 Range/Units 18:15 Urine Color Yellow Urine Appearance Clear (Clear) Urine pH 8.0 H (4.5-7.5) Ur Specific [place] 1.016 (1.000-1.030) Urine Protein Negative (Negative) Urine Glucose (UA) 3+ H (Negative) Diagnostic Findings Chest X-Ray 09/01/22 17:49 XR chest 1V portable HISTORY: 62 years-old Male Sepsis acute sepsis COMPARISON: None TECHNIQUE: AP view of the chest FINDINGS: Cardiac silhouette is mildly enlarged. No pneumothorax, pleural effusion, airspace consolidation or pulmonary edema. Degenerative changes of the shoulders and spine. IMPRESSION: No acute process. ACT 112: Negative or not required by law. The above report was generated using voice recognition software. It may contain grammatical, syntax or spelling errors. Electronically signed by: Murphy Mcdermott M.D. 09/01/2022 6:[address] 09/01/22 17:50 CT head/brain wo con CLINICAL HISTORY: 62 years-old Male with AMS. Acutely altered mental status TECHNIQUE: Multiple axial CT images of the head were obtained without contrast. A dose lowering technique was utilized adhering to the principles of ALARA. CT DOSE: 537.48 mGy.cm COMPARISON: None. FINDINGS: No acute intracranial hemorrhage, midline shift, intracranial mass, hydrocephalus, territorial ischemia or abnormal extra-axial collection. Mild involutional changes. Cerebral vascular calcifications. The calvarium is intact. The paranasal sinuses, mastoid air cells, and middle ear cavities are clear. IMPRESSION: No acute intracranial abnormality. ACT 112: Negative or not required by law. The above report was generated using voice recognition software. It may contain grammatical, syntax or spelling errors. Electronically signed by: Murphy Mcdermott M.D. 09/01/2022 7:43 PM Supervising Physician Co-Signing Physician Notes IM ATTENDING : Patient seen and examined. History obtained from patient and records. Preceding documentation by Ms. Moon Galvin PA-C reviewed. In addition, patient gives history of cough symptoms productive of junky yellow sputum the last few days FINAL ASSESSMENT AND PLAN as follows : Transient encephalopathy Patient mentation significantly improved after IVF resuscitation at the ER. Multifactorial : Sepsis secondary to complicated bronchitis/atypical pneumonia. Clinical dehydration Home neuropsychotropic medications contributory Mild rhabdomyolysis secondary to illness Transient unresponsiveness and incontinence rule out seizures History CAD, apical wall motion abnormality on outpatient stress test currently on medical management hypertension, stable Hyperlipidemia on statin Rx DM 2 on oral medications, suboptimal control as of recent hemoglobin A1c of 7.30 May 2022 NAFLD cirrhosis, patient without GI complaints PANFILO on CPAP Anxiety/mood disorder at baseline past tobacco abuse Medical telemetry CS, Doxycycline Monitor CPK response to IVF, hold statin for now, recheck CPK in a.m. Hold neuropsychotropic medications for sedation confusion Check orthostatic vitals, TTE, EEG for syncope/near syncope work-up Further management pending work-up results. Basal bolus insulin, ISS BG goal 1 10-1 40, carb count coverage, update hemoglobin A1c DVT prophylaxis. Lovenox subcu Full code Text document was generated using [employer] voice recognition software. It may contain grammatical or spelling errors. Kindly contact undersigned for clarification of any documentation item in question.
[2022-09-01] MEDS: MAGNESIUM SULFATE / D5W 1 GM/100 ML BAG IV SCH (20:46)
[2022-09-01 20:47] LABS: Influenza A virus by PCR Negative (Neg); Influenza B virus by PCR Negative (Neg); RSV by PCR Negative (Neg); SARS CoV2 RNA(COVID-19) Ceph NEGATIVE (Negative)
[2022-09-01 21:00] LABS: Lyme Ab IgG w/WB Rflx Negative (Negative); Lyme Ab IgM w/WB Rflx Negative (Negative)
[2022-09-01] MEDS ORDERED: DOXYCYCLINE HYCLATE 100 MG in DEXTROSE 5% 100 ML IV STA (21:31)
[2022-09-01] MEDS ORDERED: PROMETHAZINE HCL 12.5 MG in SODIUM CHLORIDE 0.9% 50 ML IV PRN (22:44)
[2022-09-01] MEDS ORDERED: GLUCAGON FOR INJ 1 MG VIAL SQ PRN (22:44)
[2022-09-01] MEDS ORDERED: GLUCOSE 10 TAB/TUBE PO PRN (22:44)
[2022-09-01] MEDS ORDERED: DEXTROSE 50% 50 ML SYRINGE IV PRN (22:44)
[2022-09-01] MEDS ORDERED: CARBOHYDRATES FOR HYPOGLYCEMIA PO PRN (22:44)
[2022-09-01] MEDS ORDERED: ACETAMINOPHEN 500 MG TAB PO PRN (22:44)
[2022-09-01] MEDS ORDERED: GLUCOSE 40% GEL 15 GM TUBE PO PRN ×2 (22:44)
--- NOTE | 2022-09-01 23:32 | Magnetic Resonance Report ---
Exam(s): MRI HEAD Without Contrast EXAM: MR Head Without Intravenous Contrast CLINICAL HISTORY: Reason for exam: AMS, eval for stroke. TECHNIQUE: Magnetic resonance images of the head/brain without intravenous contrast in multiple planes. COMPARISON: Comparison made to prior noncontrast head CT from September 01, 2022. FINDINGS: Brain: Minimal nonspecific white matter changes. The flow voids of the base of the brain are intact. No mass. No hemorrhage. No acute infarct. Ventricles: Unremarkable. No ventriculomegaly. Bones/joints: Fracture deformity of the superior endplate of C4. Sinuses: Unremarkable as visualized. No acute sinusitis. Mastoid air cells: Unremarkable as visualized. No mastoid effusion. Orbits: Unremarkable as visualized. IMPRESSION: Negative noncontrast MRI of the brain. Electronically signed by: Leah Pop MD 09/01/22 23:32 PM
[2022-09-01] MEDS: INSULIN ASPART PER UNIT CHARGE SC SCH (23:50)
[2022-09-02] MEDS: MAGNESIUM SULFATE / D5W 1 GM/100 ML BAG IV SCH ×2 (00:03→02:42)
[2022-09-02] MEDS: LACTATED RINGER'S 1,000 ML IV SCH ×2 (00:25→10:29)
[2022-09-02 06:25] LABS: Basophils # (auto) 0.02 K/uL (0-0.2); Basophils % (auto) 0.3 %; Eosinophils # (auto) 0.14 K/uL (0-0.50); Eosinophils % (auto) 2.3 %; Hematocrit (blood only) 36.2 % (42.0-52.0); Hemoglobin 12.3 g/dl (14.0-18.0); Immature Granulocytes # (auto) 0.01 K/uL (0.01-0.20); Immature Granulocytes % (auto) 0.2 %; Lymphocytes # (auto) 2.45 K/uL (1.2-3.4); Lymphocytes % (auto) 39.6 %; Mean Corpuscular Hemoglobin 34.6 pg (25.0-34.0); Mean Corpuscular Volume 101.7 fL (80.0-100.0); Mean Platelet Volume 11.3 fL (9.4-12.4); Monocytes % (auto) 11.3 %; Neutrophils # (auto) 2.87 K/uL (1.40-6.50); Neutrophils % (auto) 46.3 %; Platelet Count 202 K/uL (130-400); RDW Coefficient of Variation 12.5 % (11.5-14.5); RDW Standard Deviation 47.2 fL (36.4-46.3); Red Blood Count 3.56 M/uL (4.70-6.10); White Blood Count 6.19 K/ul (4.8-10.8)
[2022-09-02 06:27] LABS: Albumin Globulin Ratio 1.5 (0.9-2); Albumin Level 3.5 gm/dl (3.4-5.0); BUN Creatinine Ratio 19.8 (10-20); Bilirubin,Total 1.2 mg/dl (0.2-1.0); Calcium 7.9 mg/dl (8.6-10.3); Creatinine Clr Calc Pharmacy 76.7 ml/min; Est GFR (African American) 81.5 ml/min; Est GFR (Non-African American) 70.3 ml/min; Globulin 2.4 gm/dl (2.5-4.0); Magnesium 1.8 mg/dl (1.7-2.4); Total Protein 5.9 gm/dl (6.0-8.3)
[2022-09-02] MEDS: DULoxetine HCL 60 MG CAP PO SCH (08:00)
[2022-09-02] MEDS: ASPIRIN 81 MG ECTAB PO SCH (08:00)
[2022-09-02] MEDS: FLUTICASONE/VILANTEROL 200/25MCG 14 PUFFS/INHALER INH SCH (08:01)
[2022-09-02] MEDS: lisinopril 5 MG TAB PO SCH (08:01)
[2022-09-02] MEDS: GABAPENTIN 400 MG CAP PO SCH ×3 (08:01→20:22)
[2022-09-02] MEDS: ENOXAPARIN INJ 40 MG/0.4 ML SYR SQ SCH (08:01)
[2022-09-02] MEDS: DOXYCYCLINE HYCLATE 100 MG CAP PO SCH ×2 (08:01→20:22)
[2022-09-02] MEDS: MONTELUKAST SODIUM 10 MG TABLET PO SCH (08:01)
[2022-09-02] MEDS: INSULIN ASPART PER UNIT CHARGE SC SCH ×4 (08:05→20:25)
[2022-09-02] MEDS: LANTUS PER UNIT CHARGE SQ SCH (08:05)
[2022-09-02] MEDS ORDERED: PERFLUTREN LIPID MICROSPHERE (DEFINITY) IV ONE (13:04)
--- NOTE | 2022-09-02 14:09 | Hospitalist Progress Note ---
Date of Service September 02, 2022 Assessment & Plan (1) AMS (altered mental status): (2) Pre-syncope: (3) CAD (coronary artery disease): (4) HTN (hypertension): (5) Obstructive sleep apnea: (6) DM II (diabetes mellitus, type II), controlled: (7) MDD (major depressive disorder): (8) PTSD (post-traumatic stress disorder): (9) Lightheadedness: Plan This is a 62-year-old male with PMH of type 2 diabetes, asthma, CAD, hypertension, depression, PTSD PANFILO on CPAP and other medical problems listed below who presents with altered mental status. The episode lasted about 10 minutes before EMS brought him to the hospital. At presentation to the ED, he was AOx3; back to baseline. Transient encephalopathy Multifactorial; sepsis secondary to atypical pneumonia, dehydration Rhabdomyolysis Lactic acidosis Patient presented with altered mental status with dizziness; episode lasted about 10 minutes On presentation, lactate elevated to 3.7; down trended Labs personally reviewed from today; CK down trended with IV hydration VBG personally reviewed; no acidosis. Electrolytes within normal limits Urinalysis personally reviewed; 1+ ketones, 3+ urine glucose Checks x-ray personally viewed and reviewed; no signs of infiltrate Continue monitoring telemetry Obtain echocardiogram EEG ordered; will follow-up on results Continue on doxycycline Other conditions; Hypertensioncontinue on lisinopril Hyperlipidemiahold statin given elevated CK level Type 2 diabetes mellitushold oral medication; continue sliding scale OSAcontinue BiPAP Anxiety/mood disordercontinue on home duloxetine Full code Lovenox for DVT prophylaxis PT OT ordered Admission and Anticipated Discharge Date Admission Date: September 01, 2022 Subjective Patient seen and examined at bedside. He is alert oriented x3; not in any distress. He denies any dizziness, episode of altered mental status, fever or chills. Review of Systems Review of Systems: All systems reviewed & are unremarkable except as noted in Subjective Physical Exam Physical Exam: Constitutional: WD/WN, vitals as above, NAD, sitting up in bed, pleasant, conversing easily Respiratory: normal respiratory effort, lungs clear to auscultation, no wheeze, rales, rhonchi. Normal insp/exp effort, no accessory muscle use Cardiovascular: RRR, no murmur, no edema Vessels: no JVD or carotid bruit Chest: normal inspection of chest Abdomen: normal bowel sounds, soft, nontender, no hepatosplenomegaly Musculoskeletal: no cyanosis or clubbing, extremities motor strength 5/5 Skin: no rashes, warm and dry normal turgor Neurologic: PERRL, EOMI, accommodation nl, no face palsy, no dysarthria CN's II- XI intact bilaterally and moves all extremities Psychiatric: A+Ox3, euthymic affect Lymphatic: no cervical or axillary lymphadenopathy : deferred Results & Data Results & Data Vital Signs (Past 12 Hours) Vital Signs Temp Pulse Pulse Resp BP Pulse Ox O2 Del Method 09/02/22 11:21 36.6 C 88 20 105/66 97 Room Air 09/02/22 07:46 36.6 C 63 18 110/66 94 Room Air 09/02/22 07:24 58 L 09/02/22 04:00 35.7 C L 57 L 19 100/59 L 97 Room Air, CPAP 09/02/22 02:40 57 L 15 96 FiO2 09/02/22 11:21 09/02/22 07:46 09/02/22 07:24 09/02/22 04:00 09/02/22 02:40 21 Laboratory Results Laboratory Results WBC 6.19 K/ul (4.8-10.8) 09/02/22 05:41 RBC 3.56 M/uL (4.70-6.10) L 09/02/22 05:41 Hgb 12.3 g/dl (14.0-18.0) L 09/02/22 05:41 Hct 36.2 % (42.0-52.0) L 09/02/22 05:41 MCV 101.7 fL (80.0-100.0) H 09/02/22 05:41 MCH 34.6 pg (25.0-34.0) H 09/02/22 05:41 MCHC 34.0 g/dL (32.0-36.0) 09/02/22 05:41 RDW Std Deviation 47.2 fL (36.4-46.3) H 09/02/22 05:41 RDW Coeff of [place] 12.5 % (11.5-14.5) 09/02/22 05:41 Plt Count 202 K/uL (130-400) 09/02/22 05:41 MPV 11.3 fL (9.4-12.4) 09/02/22 05:41 Immature Gran % (Auto) 0.2 % 09/02/22 05:41 Neut % (Auto) 46.3 % 09/02/22 05:41 Lymph % (Auto) 39.6 % 09/02/22 05:41 [place] % (Auto) 11.3 % 09/02/22 05:41 Eos % (Auto) 2.3 % 09/02/22 05:41 Baso % (Auto) 0.3 % 09/02/22 05:41 Neut # (Auto) 2.87 K/uL (1.40-6.50) 09/02/22 05:41 Lymph # (Auto) 2.45 K/uL (1.2-3.4) 09/02/22 05:41 [place] # (Auto) 0.70 K/uL (0.11-0.59) H 09/02/22 05:41 Eos # (Auto) 0.14 K/uL (0-0.50) 09/02/22 05:41 Baso # (Auto) 0.02 K/uL (0-0.2) 09/02/22 05:41 Immature Gran # (Auto) 0.01 K/uL (0.01-0.20) 09/02/22 05:41 PT 11.4 Seconds (9.0-12.0) 09/01/22 18:15 INR 1.1 (0.9-1.1) 09/01/22 18:15 VBG pH 7.40 (7.36-7.41) 09/01/22 18:36 VBG pCO2 37 mmHg (38-50) L 09/01/22 18:36 VBG pO2 52 mmHg 09/01/22 18:36 VBG HCO3 23 mmol/L 09/01/22 18:36 VBG O2 Saturation 84.3 % 09/01/22 18:36 VBG Base Excess -1.5 mEq/L 09/01/22 18:36 Sodium 137 mmol/L (136-145) 09/02/22 05:41 Potassium 4.0 mmol/L (3.5-5.1) 09/02/22 05:41 Chloride 106 mmol/L (98-107) 09/02/22 05:41 Carbon Dioxide 25 mmol/L (21-32) 09/02/22 05:41 Anion Gap 6 (3-11) 09/02/22 05:41 BUN 22 mg/dl (6-23) 09/02/22 05:41 Creatinine 1.11 mg/dl (0.6-1.4) 09/02/22 05:41 Est Cr Clr Drug Dosing 76.7 ml/min 09/02/22 05:41 Est GFR ( Amer) 81.5 ml/min 09/02/22 05:41 Est GFR (Non-Af Amer) 70.3 ml/min 09/02/22 05:41 BUN/Creatinine Ratio 19.8 (10-20) 09/02/22 05:41 Glucose 136 mg/dl (70-99(Fasting)) H 09/02/22 05:41 POC Glucose 84 mg/dl (70-99) 09/02/22 11:33 Lactate 1.6 mmol/L (0.4-2.0) 09/01/22 19:55 Calcium 7.9 mg/dl (8.6-10.3) L 09/02/22 05:41 Magnesium 1.8 mg/dl (1.7-2.4) 09/02/22 05:41 Total Bilirubin 1.2 mg/dl (0.2-1.0) H 09/02/22 05:41 Direct Bilirubin 0.2 mg/dl (0-0.2) 09/01/22 18:15 AST 42 U/L (13-39) H 09/02/22 05:41 ALT 52 U/L (7-52) 09/02/22 05:41 Alkaline Phosphatase 48 U/L (34-104) 09/02/22 05:41 Ammonia 45.0 umol/L (18-72) 09/01/22 18:15 Total Creatine Kinase 584 U/L (30-223) H 09/02/22 05:41 Troponin I High Sens 10.8 pg/ml (0-20) 09/01/22 18:15 Total Protein 5.9 gm/dl (6.0-8.3) L 09/02/22 05:41 Albumin 3.5 gm/dl (3.4-5.0) 09/02/22 05:41 Globulin 2.4 gm/dl (2.5-4.0) L 09/02/22 05:41 Albumin/Globulin Ratio 1.5 (0.9-2) 09/02/22 05:41 Procalcitonin < 0.05 ng/ml (0-0.5) 09/01/22 18:15 TSH 1.330 uIu/ml (0.300-4.500) 09/01/22 18:15 Urine Color Yellow 09/01/22 18:15 Urine Appearance Clear (Clear) 09/01/22 18:15 Urine pH 8.0 (4.5-7.5) H 09/01/22 18:15 Ur Specific [place] 1.016 (1.000-1.030) 09/01/22 18:15 Urine Protein Negative (Negative) 09/01/22 18:15 Urine Glucose (UA) 3+ (Negative) H 09/01/22 18:15 Urine Ketones 1+ (Negative) H 09/01/22 18:15 Urine Blood Negative (Negative) 09/01/22 18:15 Urine Nitrite Negative (Negative) 09/01/22 18:15 Urine Bilirubin Negative (Negative) 09/01/22 18:15 Urine Urobilinogen Negative (Negative) 09/01/22 18:15 Ur Leukocyte Esterase Negative (Negative) 09/01/22 18:15 Lyme Disease IgG Ab Negative (Negative) 09/01/22 18:15 Lyme Disease IgM Ab Negative (Negative) 09/01/22 18:15 SARS-CoV-2 (PCR) NEGATIVE (Negative) 09/01/22 20:00 Influenza Type A (PCR) Negative (Neg) 09/01/22 20:00 Influenza Type B (PCR) Negative (Neg) 09/01/22 20:00 RSV (RT-PCR) Negative (Neg) 09/01/22 20:00 Impressions Chest X-Ray 09/01/22 17:49 XR chest 1V portable HISTORY: 62 years-old Male Sepsis acute sepsis COMPARISON: None TECHNIQUE: AP view of the chest FINDINGS: Cardiac silhouette is mildly enlarged. No pneumothorax, pleural effusion, airspace consolidation or pulmonary edema. Degenerative changes of the shoulders and spine. IMPRESSION: No acute process. ACT 112: Negative or not required by law. The above report was generated using voice recognition software. It may contain grammatical, syntax or spelling errors. Electronically signed by: Murphy Mcdermott M.D. 09/01/2022 6:[address] 09/01/22 17:50 CT head/brain wo con CLINICAL HISTORY: 62 years-old Male with AMS. Acutely altered mental status TECHNIQUE: Multiple axial CT images of the head were obtained without contrast. A dose lowering technique was utilized adhering to the principles of ALARA. CT DOSE: 537.48 mGy.cm COMPARISON: None. FINDINGS: No acute intracranial hemorrhage, midline shift, intracranial mass, hydr ocephalus, territorial ischemia or abnormal extra-axial collection. Mild involutional changes. Cerebral vascular calcifications. The calvarium is intact. The paranasal sinuses, mastoid air cells, and middle ear cavities are clear. IMPRESSION: No acute intracranial abnormality. ACT 112: Negative or not required by law. The above report was generated using voice recognition software. It may contain grammatical, syntax or spelling errors. Electronically signed by: Murphy Mcdermott M.D. 09/01/2022 7:43 PM Brain MRI 09/01/22 19:51 Exam(s): MRI HEAD Without Contrast EXAM: MR Head Without Intravenous Contrast CLINICAL HISTORY: Reason for exam: AMS, eval for stroke. TECHNIQUE: Magnetic resonance images of the head/brain without intravenous contrast in multiple planes. COMPARISON: Comparison made to prior noncontrast head CT from September 01, 2022. FINDINGS: Brain: Minimal nonspecific white matter changes. The flow voids of the base of the brain are intact. No mass. No hemorrhage. No acute infarct. Ventricles: Unremarkable. No ventriculomegaly. Bones/joints: Fracture deformity of the superior endplate of C4. Sinuses: Unremarkable as visualized. No acute sinusitis. Mastoid air cells: Unremarkable as visualized. No mastoid effusion. Orbits: Unremarkable as visualized. IMPRESSION: Negative noncontrast MRI of the brain. Electronically signed by: Leah Pop MD 09/01/22 23:32 PM
[2022-09-02] MEDS ORDERED: rOPINIRole HCL 0.25 MG TABLET PO SCH (21:00)
[2022-09-02] MEDS ORDERED: ROSUVASTATIN CALCIUM 10 MG TAB PO SCH ×2 (21:00)
--- NOTE | 2022-09-03 05:31 | Electrocardiogram Report ---
Test Reason : Blood Pressure : / mmHG Vent. Rate : 074 BPM Atrial Rate : 074 BPM P-R Int : 150 ms QRS Dur : 096 ms QT Int : 398 ms P-R-T Axes : 008 009 026 degrees QTc Int : 441 ms Normal sinus rhythm No previous ECGs available Confirmed by Jamel Senior ([id number]) on 09/03/2022 5:31:20 AM Referred By: REFERRED SELF Confirmed By:Jamel Senior
[2022-09-03 07:31] LABS: Basophils # (auto) 0.02 K/uL (0-0.2); Basophils % (auto) 0.4 %; Eosinophils # (auto) 0.18 K/uL (0-0.50); Eosinophils % (auto) 3.6 %; Hematocrit (blood only) 38.7 % (42.0-52.0); Hemoglobin 13.2 g/dl (14.0-18.0); Immature Granulocytes # (auto) 0.01 K/uL (0.01-0.20); Immature Granulocytes % (auto) 0.2 %; Lymphocytes # (auto) 2.04 K/uL (1.2-3.4); Mean Corpuscular Hemoglobin 34.8 pg (25.0-34.0); Mean Corpuscular Hgb Conc 34.1 g/dL (32.0-36.0); Mean Corpuscular Volume 102.1 fL (80.0-100.0); Mean Platelet Volume 11.3 fL (9.4-12.4); Monocytes # (auto) 0.49 K/uL (0.11-0.59); Monocytes % (auto) 9.9 %; Neutrophils # (auto) 2.23 K/uL (1.40-6.50); Neutrophils % (auto) 44.9 %; Platelet Count 197 K/uL (130-400); RDW Coefficient of Variation 12.5 % (11.5-14.5); RDW Standard Deviation 46.8 fL (36.4-46.3); Red Blood Count 3.79 M/uL (4.70-6.10); White Blood Count 4.97 K/ul (4.8-10.8)
[2022-09-03 07:54] LABS: Albumin Globulin Ratio 1.4 (0.9-2); Albumin Level 3.7 gm/dl (3.4-5.0); Bilirubin,Total 0.9 mg/dl (0.2-1.0); Calcium 8.8 mg/dl (8.6-10.3); Creatinine Clr Calc Pharmacy 83.7 ml/min; Est GFR (African American) 92.4 ml/min; Est GFR (Non-African American) 79.7 ml/min; Globulin 2.7 gm/dl (2.5-4.0); Potassium 4.2 mmol/L (3.5-5.1); Total Protein 6.4 gm/dl (6.0-8.3)
[2022-09-03] MEDS: INSULIN ASPART PER UNIT CHARGE SC SCH ×2 (09:45→12:35)
[2022-09-03] MEDS: FLUTICASONE/VILANTEROL 200/25MCG 14 PUFFS/INHALER INH SCH (09:48)
[2022-09-03] MEDS: GABAPENTIN 400 MG CAP PO SCH (09:49)
[2022-09-03] MEDS: DOXYCYCLINE HYCLATE 100 MG CAP PO SCH (09:50)
[2022-09-03] MEDS: ASPIRIN 81 MG ECTAB PO SCH (09:50)
[2022-09-03] MEDS: MONTELUKAST SODIUM 10 MG TABLET PO SCH (09:51)
[2022-09-03] MEDS: lisinopril 5 MG TAB PO SCH (09:51)
[2022-09-03] MEDS: ENOXAPARIN INJ 40 MG/0.4 ML SYR SQ SCH (09:53)
[2022-09-03] MEDS: DULoxetine HCL 60 MG CAP PO SCH (09:53)
[2022-09-03] MEDS: LANTUS PER UNIT CHARGE SQ SCH (11:17)
--- NOTE | 2022-09-03 11:45 | Discharge Summary ---
Date of Service September 03, 2022 Admission HPI Per Admitting Provider This is a 62-year-old male with PMH of type 2 diabetes, asthma, CAD, hypertension, depression, PTSD PANFILO on CPAP and other medical problems listed below who presents with altered mental status. 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 Got on his tractor around 1330 and began to feel lightheaded and nauseous to the point of thinking that he may pass out. He then endorses developing shaking of his body with associated sweating, followed by a generalized weak feeling, like his legs were weight. Called the office for help and required physical assistance to get off of the tractor. States the episode lasted 10 minutes but when he was picked up by his , she felt that he remained confused up and through the time he was seen by the ED provider. Was not able to accurately name the day or correctly state his age. Did use bug repellant twice earlier today but denies known exposure to other chemicals or pesticides. No rash. Of note, patient states when he got up to use the bathroom at the campground last night, he walked into the restroom and then ended up urinating all over himself, which he did not have any recollection of until he "came to". This is unusual for him as he is normally continent of urine. Denies any falls or trauma. Denies recent alcohol use and when he does drink, it's an occasional beer. States he was remotely worked up for seizure- like activity but nothing specific was found (no records of a workup in [facility]). Has had previous issues feelings of lightheadedness and nausea that he has attributed to vertigo that have resolved on their own, although patient does note that these episodes have become more frequent and lasted for longer over the past few months. Does endorse intermittent palpitations but no chest pain. Has been having pain in bilateral calf muscles over the past few days that he attributes to more exertion in warmer weather. Per PCP note from May, p karlene endorsed episodes of sweating with associated dizziness then that did not feel similar to his previous vertigo and was treated with cefdinir for a possible sinus infection. Patient states episodes have worsened since then and the one earlier today was the worst yet. Denies history of [place] but did undergo stress echo in September 2020 that was essentially normal. Stress imaging showed a small apical wall segment being hypokinetic at peak exercise. All other segments were hyperkinetic with exercise. Currently patient is comfortable and A&O x4. Denies any fever, chills, lightheadedness, chest pain, shortness of breath, vomiting, abdominal pain, dysuria, diarrhea or constipation. Taking all medications as prescribed. Admission Exam Per Admitting Provider General Appearance:WD/WN, vitals as above, NAD, sitting up in bed, pleasant, conversing easily, tremoring bilateral hands Head: normocephalic, atraumatic Eyes:normal inspection, PERRL, conjunctivae normal, anicteric sclerae ENT: external ear and nose normal, oropharynx normal Neck: normal visual inspection, trachea midline, no thyromegaly Respiratory:normal respiratory effort, lungs clear to auscultation, no wheeze, rales, rhonchi. No accessory muscle use Cardiovascular: regular rate, rhythm, no murmur, normal peripheral pulses, no BLE edema. Vessels: no JVD Chest: normal inspection of chest Abdomen/GI: normal bowel sounds, soft, nontender, no hepatosplenomegaly Extremities/Musculoskeletal: no cyanosis or clubbing, extremities motor strength 5/5 Neurologic: PERRL, EOMI, accommodation nl, no face palsy, no dysarthria, CN's II-XI intact bilaterally and moves all extremities Psychiatric:A+Ox4, euthymic affect Skin: no rashes, normal color, warm/dry Principal Diagnosis Transient encephalopathy Multifactorial; sepsis secondary to atypical pneumonia, dehydration Rhabdomyolysis Lactic acidosis Discharge Exam Constitutional: WD/WN, vitals as above, NAD, sitting up in bed, pleasant, conversing easily Respiratory: normal respiratory effort, lungs clear to auscultation, no wheeze, rales, rhonchi. Normal insp/exp effort, no accessory muscle use Cardiovascular: RRR, no murmur, no edema Vessels: no JVD or carotid bruit Chest: normal inspection of chest Abdomen: normal bowel sounds, soft, nontender, no hepatosplenomegaly Musculoskeletal: no cyanosis or clubbing, extremities motor strength 5/5 Skin: no rashes, warm and dry normal turgor Neurologic: PERRL, EOMI, accommodation nl, no face palsy, no dysarthria CN's II- XI intact bilaterally and moves all extremities Psychiatric: A+Ox3, euthymic affect Lymphatic: no cervical or axillary lymphadenopathy : deferred Discharge Data Allergies Allergy/AdvReac Type Severity Reaction Status Date / Time house dust Allergy Intermediate SNEEZING, Verified 09/01/22 18:29 CONGESTION, CAN TRIGGER ASTHMA mold Allergy Intermediate SNEEZING, Verified 09/01/22 18:29 CONGESTION, CAN TRIGGER ASTHMA pollen extracts Allergy Intermediate SNEEZING, Verified 09/01/22 18:29 CONGESTION, CAN TRIGGER ASTHMA amoxicillin [From Augmentin] AdvReac Intermediate Diarrhea Verified 09/01/22 18:29 clavulanic acid AdvReac Intermediate Diarrhea Verified 09/01/22 18:29 [From Augmentin] Consultations 09/01/22 20:30 ED Decision to Admit Stat Ordered Studies 09/01/22 17:50 CT head/brain wo con Stat 09/01/22 19:51 MRI Brain [MR brain wo con] Stat Hospital Course (1) AMS (altered mental status): (2) Pre-syncope: (3) CAD (coronary artery disease): (4) HTN (hypertension): (5) Obstructive sleep apnea: (6) DM II (diabetes mellitus, type II), controlled: (7) MDD (major depressive disorder): (8) PTSD (post-traumatic stress disorder): (9) Lightheadedness: Plan This is a 62-year-old male with PMH of type 2 diabetes, asthma, CAD, hypertension, depression, PTSD PANFILO on CPAP and other medical problems listed below who presents with altered mental status. The episode lasted about 10 minutes before EMS brought him to the hospital. At presentation to the ED, he was AOx3; back to baseline. He was vitally stable. CT head without contrast did not show any acute finding. MRI brain without contrast did not show any stroke. Chest x-ray did not show any infiltrates. Patient had complained of coughing; had occasional wheeze on examination. He was started on doxycycline for possible bronchitis. He was admitted to telemetry floor for further monitoring. Echocardiogram was done which showed EF of 60 to 65%; no significant valvular abnormalities were seen. cardiac surgeon during the hospitalization did not show any arrhythmias. Patient was also found to have mild rhabdomyolysis; CK down trended with IV fluids. Patient continued to be AO x3 throughout the hospitalization. He was discharged home with 3 more days of doxycycline. Patient to follow-up with his primary care doctor Total Time Total Time Spent Total Time Spent (In Minutes): 35 Total Time Includes: Examination of the Patient, Discharge Planning, Medication Reconciliation, Communication With Other Providers and Other Discharge Plan Discharge Items Patient Disposition: Home - Self-Care Reason For Visit: SEPSIS Discharge Diagnosis: Transient encephalopathy Multifactorial; sepsis secondary to atypical pneumonia, dehydration Rhabdomyolysis Lactic acidosis Activity: Resume your previous activity Non-emergency contact: Primary Care Provider Call non-emergency contact if: you have any medication questions and your symptoms worsen Follow-up/Referrals: Philippe Siddiqui M.D. [Primary Care Provider] - Diet: Regular Addtl Attending Provider Instructions: You were admitted to the hospital with transient altered mental status. The likely underlying cause is overexertion and dehydration. MRI of your brain was done which did not show any acute findings. Echocardiogram was done which showed good heart function. equipment monitor phototypesetting during the hospitalization did not show any arrhythmias. You are prescribed doxycycline 100 mg twice daily to be taken for 3 more days for bronchitis. Please see your primary care doctor next week. Pending Studies at Discharge: No Stand-Alone Forms: My [facility], Smoking Cessation Medications and DC Order Prescriptions: New doxycycline hyclate 100 mg Capsule 100 mg PO BID 3 Days Qty: 6 0RF Continued metformin 500 mg tablet 1,000 mg PO BID fluticasone propion-salmeterol [Advair Diskus] 250-50 mcg/dose Blister With Device 2 inh INHALATION DAILY azelastine 0.05 % drops 1 drp OPB Q12H albuterol sulfate 2.5 mg /3 mL (0.083 %) Solution For Nebulization 2.5 mg INHALATION Q4H PRN (Reason: Shortness Of Breath) gabapentin 400 mg capsule 400 mg PO TID glipizide 5 mg tablet extended release 24hr 5 mg PO QAM fexofenadine [Alessia] 180 mg Tablet 180 mg PO DAILY PRN (Reason: Congestion) aspirin 81 mg Tablet,Delayed Release (Dr/Ec) 81 mg PO DAILY ropinirole 0.25 mg tablet 0.5 mg PO QPM Rx Instructions: TAKE 1 HR PRIOR TO HS. lansoprazole 30 mg capsule,delayed release(DR/EC) 30 mg PO BID lisinopril-hydrochlorothiazide 20-25 mg tablet 1 tab PO DAILY montelukast [Singulair] 10 mg Tablet 10 mg PO DAILY albuterol sulfate [ProAir HFA] 90 mcg/actuation Hfa Aerosol Inhaler 2 puff INHALATION .Q4-6H PRN (Reason: Shortness Of Breath) cholecalciferol (vitamin D3) [Vitamin D3] 25 mcg (1,000 unit) Capsule 25 mcg PO DAILY Centrum Silver Tablet 1 tab PO DAILY Saline Nasal 0.65 % Aerosol,[place] 1 spray INTRANASAL DIRECTED PRN (Reason: Nasal Congestion) rosuvastatin 10 mg tablet 10 mg PO HS duloxetine 60 mg Capsule,Delayed Release(Dr/Ec) 60 mg PO DAILY Farxiga 10 mg tablet 10 mg PO DAILY Glucosamine Chondroitin 550-30-1 mg Capsule 1 cap PO DAILY Trulicity 3 mg/0.5 mL pen injector 3 mg SUBCUT WK Discharge Orders: Discharge Order (Routine); Ordered 09/03/22 Ordered By: Colton Taylor Admission Data Admit Date/Time: 09/01/22 21:38 Attending Provider: Colton Taylor Admit Provider: Talib Stephens Primary Care Provider: Philippe Siddiqui Other Providers: Talib Stephens
== END 2022-09-03 13:35 | disposition home or self-care (01) | DRG 871 ==
LOC: ED 17:19 → 2N 21:38